=== PATIENT | female | born 2000 | race Caucasian/White ===

== ENCOUNTER 2025-09-27 20:33 | Emergency (ER) | payer BC, SELFPAY ==
[2025-09-27 20:42] VITALS: BP 124/81; PULSE 69; RESP 16; TEMP 36.7; O2SAT 97; BMI 27.6
[2025-09-27 20:55] VITALS: BP 102/59; PULSE 60; RESP 16; TEMP 36.7; O2SAT 99; BMI 27.6
[2025-09-27 21:10] VITALS: BP 122/71; PULSE 73
[2025-09-27 21:28] VITALS: BP 102/59; PULSE 60
== END 2025-09-27 21:42 | disposition home or self-care (01) ==
LOC: ER 20:44 → OBGYN 21:40
PROVIDERS: Emergency Provider Family Medicine; Visit Provider Family Medicine
DX: Z53.21 Procedure and treatment not carried out due to patient leaving prior to being seen by health care provider (principal)
CPT/HCPCS: 99211; 99282; G0378

== ENCOUNTER 2025-09-27 21:44 | Emergency (ER) | payer BC, SELFPAY ==
[2025-09-27 21:59] VITALS: BP 104/64; PULSE 69; RESP 15; TEMP 36.7; O2SAT 99
[2025-09-27 22:51] VITALS: PULSE 84
--- NOTE | 2025-09-27 23:11 | W.ED.NEUROSD ---
HPI - Neuro Symptoms/Deficit General: Chief Complaint: Neuro Symptoms/Deficit Stated Complaint: Sent from OB Time Seen by Provider: 09/27/25 22:36 History of Present Illness: 25yo F w/cc of onset of blurry vision, brain fog, then development of gradual and increasing pressure like/pain sensation and MIRELES behind her eyes. She states that at home her MIRELES was 7/10. She does report h/o MIRELES and migraine. She has not taken any medications for pain as she is ; she was evaluated by OB prior to coming to the emergency department and cleared from OB standpoint. She states what usually helps is lying down in a dark room. When I see her, her MIRELES has spontaneously improved to 4/10 and her vision is now normal. She denies fever, neck pain, trauma to neck, sensory changes/paresthesias, focal weakness, double vision, loss of vision, vertigo, facial asymmetry, slurred speech, difficulty w/coordination or ambulation. She is healthy and does not have any stroke risk factors. She's felt a bit nauseated but has not vomited. No chest pain, shortness of breath, syncope, abd pain. Related Data Allergies Allergy/AdvReac Type Severity Reaction Status Date / Time No Known Allergies Allergy Verified 09/27/25 20:51 [facility] ED Female Reproductive History: Date of last menstrual period: 05/07/25 Physical Exam Narrative: EXAM NARRATIVE: Vital signs were reviewed. Patient is alert and oriented. PERRL, EOMI. Visual acuity (R: 20/25, L: 20/30) Patient is breathing comfortably, no increased WOB or accessory muscle use. SpO2 is above 95% on RA. Patient has clear lungs b/l, no rhonchi, wheezing or crackles. No hypotension or tachycardia. Abdomen is soft, nondistended and nontender. Patient is moving all extremities, no deformity or gross injury. No lower extremity edema or asymmetry. Neuro: Awake, alert, strength equal bilaterally. No sensory deficit. Able to perform FNF, heel to clement. Ambulatory. CRANIAL NERVES: II: Pupils equal and reactive, no visual field deficits. III, IV, : EOM intact, no gaze preference or deviation, no nystagmus. V: normal sensation in V1, V2, and V3 segments bilaterally VII: no asymmetry, no nasolabial fold flattening VIII: normal hearing to speech IX, X: normal palatal elevation, no uvular deviation XI: 5/5 head turn and 5/5 shoulder shrug bilaterally XII: midline tongue protrusion Course Vital Signs: Vital signs: Vital Signs Temperature 98.1 F 09/27/25 21:59 Pulse Rate 84 09/27/25 22:51 Respiratory Rate 15 09/27/25 21:59 Blood Pressure 104/64 09/27/25 21:59 Pulse Oximetry 99 09/27/25 21:59 Oxygen Delivery Me thod Room Air 09/27/25 21:59 MDM - Neuro Symptoms/Deficit Medical Decision Making Patient is a 25-year-old female presenting with a chief complaint of blurry vision, followed by brain fog and headache while she was on [employer]ik[employer]. She states that lying down in a dark quiet room helps. No OB complaints, cleared by OB prior to presentation to the emergency department. Differential diagnosis includes but is limited to, tension headache, cluster headache, aura without headache, migraine aura with or without headache, status migrainosus, preeclampsia/eclampsia, infectious cause such as viral URI, other. On exam she is a medically stable and nontoxic-appearing. She has a nonfocal neurologic exam. Her headache is spontaneously resolving. We discussed treatment with migraine cocktail but patient states her vision changes have now completely resolved, her headache is feeling better as she would prefer to go home. Her presentation is most consistent with migraine with aura without status migrainosus. Patient was counseled on return precautions, counseled on supportive care at home and discharged with recommendation for close outpatient follow-up. No radiology studies performed this visit Discharge Plan Discharge Patient Disposition: Home Clinical Impression: Migraine headache with aura Qualifiers: Status migrainosus presence: without status migrainosus Intractability: not intractable Qualified Code(s): G43.109 - Migraine with aura, not intractable, without status migrainosus Condition: Stable Discharge Orders: Discharge ED (Routine); Ordered 09/27/25 Ordered By: Priscila Holliday Patient Instructions: Migraine Headache (ED), Opioid Safety, Pain Management, Patient Portal & Scott Instructions Activity Restrictions/Additional Instructions: Please continue to monitor your condition closely at home. You may take Tylenol for pain; it remains the safest medication for pain and fever in . If your condition worsens or additional concerns arise, please return promptly to the emergency department for reassessment. Follow up with your primary care doctor in one week. Print Language: Armenian Coding Level of Care Code ED Filing Or Registry Clerk for Clay Limon
== END 2025-09-27 23:44 | disposition home or self-care (01) ==
PROVIDERS: Emergency Provider Emergency Medicine
DX: O26.899 Other specified pregnancy related conditions, unspecified trimester (principal); G43.109 Migraine with aura, not intractable, without status migrainosus
CPT/HCPCS: 99282